=== PATIENT | female | born 1995 | race Caucasian/White ===

== ENCOUNTER 2021-02-28 07:05 | Inpatient (IN) | payer SELFPAY ==
[~2021-02-28] VITALS: Ht 168 cm; Wt 79.4 kg
[2021-02-28] MEDS ORDERED: LIDOCAINE 1% 500 MG/50 ML VIAL ONE (07:44)
[2021-02-28 07:45] VITALS: BP 109/55
[2021-02-28] MEDS ORDERED: METHYLERGONOVINE 0.2 MG/ML AMP IM PRN ×2 (07:50→08:05)
[2021-02-28] MEDS ORDERED: CARBOPROST 250 MCG/ML AMP IM PRN (07:50)
[2021-02-28] MEDS ORDERED: OXYTOCIN 10 UNITS/ML VIAL IM SCH (07:50)
[2021-02-28] MEDS ORDERED: LACTATED RINGERS 1,000 ML IV SCH (07:50)
[2021-02-28] MEDS ORDERED: METHYLERGONOVINE 0.2 MG TAB PO PRN (08:05)
[2021-02-28] MEDS ORDERED: MEASLES, MUMPS, AND RUBELLA 1 VIAL SQVAC ONE (08:05)
[2021-02-28] MEDS ORDERED: OXYTOCIN 10 UNITS/ML VIAL IM PRN (08:05)
[2021-02-28] MEDS ORDERED: bisacodyL 5 MG TABEC PO PRN (08:05)
[2021-02-28] MEDS ORDERED: DOCUSATE SODIUM 100 MG GELCAP PO PRN (08:05)
[2021-02-28] MEDS ORDERED: SIMETHICONE 80 MG TAB.CHEW PO PRN (08:05)
[2021-02-28] MEDS ORDERED: BENZOCAINE/MENTHOL 20%-0.5% 60 GM CAN TP PRN (08:05)
[2021-02-28] MEDS ORDERED: MEASLES, MUMPS, AND RUBELLA 1 VIAL SQVAC PRN (08:30)
[2021-02-28] MEDS ORDERED: oxyCODONE 5 MG TAB PO PRN (08:30)
[2021-02-28] MEDS ORDERED: ACETAMINOPHEN EXTRA STRENGTH 500 MG TAB PO PRN (08:30)
[2021-02-28 08:32] LABS: BASOPHILS % (AUTO) 0.3 % (0.0-2.0); EOSINOPHILS # (AUTO) 0.1 K/uL (0-0.4); EOSINOPHILS % (AUTO) 0.5 % (0.0-4.0); HEMOGLOBIN 12.3 g/dL (12.0-16.0); LYMPHOCYTES # (AUTO) 1.5 K/uL (2.5-16.5); LYMPHOCYTES % (AUTO) 11.9 % (20.5-51.1); MEAN CORPUSCULAR HEMOGLOBIN 30 pg (27-31); MEAN CORPUSCULAR HGB CONC 33 g/dL (33-37); MEAN CORPUSCULAR VOLUME 90.8 fL (80-94); MONOCYTES # (AUTO) 0.6 K/uL (0.8-1.0); NEUTROPHILS # (AUTO) 10.2 K/uL (1.8-7.7); NEUTROPHILS % (AUTO) 82.3 % (42.2-75.2); PLATELET COUNT (AUTO) 218 K/uL (140-450); RED BLOOD CELL COUNT(AUTO) 4.08 MIL/uL (4.20-5.40); RED CELL DISTRIBUTION WIDTH 13.4 % (11.6-13.7); WHITE BLOOD COUNT (AUTO) 12.4 K/uL (4.8-10.8)
[2021-02-28 08:47] LABS: ALBUMIN 2.3 g/dL (3.4-5.0); ANION GAP 12.5 (8-16); CARBON DIOXIDE 23.4 mmol/L (21-32); CREATININE 0.6 mg/dL (0.6-1.3); POTASSIUM 3.9 mmol/L (3.5-5.1); TOTAL BILIRUBIN 0.8 mg/dL (0.0-1.0)
--- NOTE | 2021-02-28 09:41 | NUR ---
PATIENT HAS BEEN SCREENED AND CATEGORIZED LOW NUTRITION RISK. PATIENT WILL BE SEEN WITHIN 7 DAYS OF ADMISSION. 03/06/[address]
[2021-03-01 08:36] LABS: HEMATOCRIT 37.4 % (36-48); HEMOGLOBIN 12.4 g/dL (12.0-16.0)
== END 2021-03-01 13:37 | disposition home or self-care (01) | DRG 807 ==
LOC: MLD 07:05 → MFCC 10:40
PROVIDERS: ADMIT Obstetrics & Gynecology; ATTEND Obstetrics & Gynecology
PROC: 10E0XZZ Delivery of Products of Conception, External Approach (ICD-10-PCS; principal; 2021-02-28)
PROC: 0KQM0ZZ Repair Perineum Muscle, Open Approach (ICD-10-PCS; 2021-02-28)
PROC: 3E0234Z Introduction of Serum, Toxoid and Vaccine into Muscle, Percutaneous Approach (ICD-10-PCS; 2021-02-28)
PROC: 3E0134Z Introduction of Serum, Toxoid and Vaccine into Subcutaneous Tissue, Percutaneous Approach (ICD-10-PCS; 2021-02-28)
DX: O69.81X0 Labor and delivery complicated by cord around neck, without compression, not applicable or unspecified (principal); Z37.0 Single live birth; O70.1 Second degree perineal laceration during delivery; Z3A.41 41 weeks gestation of pregnancy; Z20.822 Contact with and (suspected) exposure to COVID-19; Z23 Encounter for immunization
CPT/HCPCS: 36415; 59409; 80053; 85018; 85025; 86592; 86762; 86886; 86900; 86901; 87340; 90715; J2001